=== PATIENT | female | born 1965 | race Caucasian/White ===

== ENCOUNTER → 2018-03-04 | Outpatient (CLI) | payer BC ==
--- NOTE | 2018-03-04 10:17 | CT ---
EXAMINATION TYPE: CT sinus wo con DATE OF EXAM: 03/04/2018 COMPARISON: NONE HISTORY: chronic sinus infections. drainage and congestion CT DLP: 547 mGycm CONTRAST: 0 mL of Isovue 300 The paranasal sinuses are examined in the axial plane at 2 mm thick sections. Reconstructed images i n the coronal plane were obtained. The maxillary sinuses are clear. The ethmoid air cells are clear. The sphenoid sinuses are clear. The frontal sinuses are clear. The septum is evaluated. There is septal deviation to the right. A right septal spur is noted. The ostiomeatal units are patent. IMPRESSIONS: 1. No acute or chronic sinusitis. 2. Right septal deviation with a right septal spur.
== END | disposition home or self-care (01) ==
LOC: RADCTMAIN 09:08
PROVIDERS: ATTEND Nurse Practitioner Family
DX: J34.2 Deviated nasal septum (principal); J34.89 Other specified disorders of nose and nasal sinuses
CPT/HCPCS: 70486

== ENCOUNTER → 2018-03-20 | Outpatient (CLI) | payer BC | END | disposition home or self-care (01) | LOC: LABMAIN 17:48 | PROVIDERS: ATTEND Otolaryngology | DX: Z53.9 Procedure and treatment not carried out, unspecified reason (principal) ==

== ENCOUNTER → 2022-01-09 | Outpatient (CLI) | payer OTHER ==
--- NOTE | 2022-01-09 20:01 | CT ---
EXAMINATION TYPE: CT soft tissue neck w con DATE OF EXAM: 01/09/2022 6:40 PM COMPARISON: CT dated 03/04/2018 HISTORY: dysphagia, sore throat CT DLP: 242.4 mGycm Automated exposure control for dose reduction was used. CONTRAST: CT scan of the neck is performed following with IV Contrast, patient injected with 100 mL of Isovue 3 00. Axial images are obtained, coronal and sagittal reformatted images are reviewed. FINDINGS: Markedly enlarged nasopharyngeal soft tissue measuring 18 mm in AP dimension compared to 14 [address] scan. This is relatively reassuring yet underlying neoplastic process can't be excluded. No sign ificant opacification of the mastoid air cells. Enlarged palatine tonsils, slightly more on the right side. Minimal prominence of the left inguinal tonsil. Unremarkable right inguinal tonsil. Unremarkable remainder of the pharynx, larynx and visualized portion of the trachea and esophagus. Un remarkable thyroid gland. Symmetrical unremarkable parotid and submandibular salivary glands. Subcent imeter bilateral cervical and submandibular lymph nodes, nonspecific. No pathologically enlarged or s uspicious lymph nodes in the neck. Patent major neck vessels. Degenerative changes at C5-6 level. No aggressive bone lesion. IMPRESSION: Markedly enlarged nasopharyngeal soft tissue, progressed yet still appreciated in 2018 CT scan which is relatively reassuring. Underlying neoplastic process cannot be excluded. Associated enlarged palat ine tonsils. Recommend clinical correlation and ENT consultation. Further PET scan assessment can be considered. No suspicious or pathologically enlarged lymph nodes in the neck.
== END | disposition home or self-care (01) ==
LOC: RADCTMAIN 18:02
PROVIDERS: ATTEND Otolaryngology
DX: R13.10 Dysphagia, unspecified (principal)
CPT/HCPCS: 70491; Q9967

== ENCOUNTER 2022-03-06 08:29 | Day surgery (SDC) | payer OTHER ==
[~2022-03-06 08:29] MED LIST: DEXAMETHASONE SOD PHOSPHATE 4 MG/ML 1 ML VIAL IV PRN; FAMOTIDINE 20 MG/2 ML VIAL IV PRN; LACTATED RINGERS 1,000 ML IV SCH; ONDANSETRON 4 MG/2 ML VIAL IVP PRN
[2022-03-06] MEDS ORDERED: LIDOCAINE 1% (10MG/ML) FOR IV START INTRADERMA ONE (08:58)
[2022-03-06] MEDS: OXYMETAZOLINE 0.05% NASL SPRAY 1 SPRAY BOTTLE EA NOSTRIL PRN ×5 (08:58→09:30)
[2022-03-06] MEDS ORDERED: PROPOFOL 10 MG/ML 20 ML VIAL IV ONE (10:08)
[2022-03-06] MEDS ORDERED: MIDAZOLAM 2 MG/2 ML VIAL ONE (10:08)
[2022-03-06] MEDS ORDERED: SUCCINYLCHOLINE CHLORIDE 100 MG/5 ML SYR IV ONE (10:08)
[2022-03-06] MEDS ORDERED: fentaNYL (PF) 50 MCG/ML 2 ML AMP ONE (10:08)
[2022-03-06] MEDS ORDERED: LIDOCAINE 2% INJ 20 MG/ML (2 ML VIAL) ONE (10:08)
[2022-03-06] MEDS ORDERED: LIDOCAINE 1%-EPI 1:100,000 20 ML VIAL SUBMUCOSAL ONE ×2 (10:19)
[2022-03-06] MEDS ORDERED: BACITRACIN ZINC 500 UNIT/GM OINT 28.4 GM TUBE TOPICAL ONE (10:26)
--- NOTE | 2022-03-06 10:57 | P.OP ---
Date of Procedure: 03/06/22 Preoperative Diagnosis: Deviated nasal septum Inferior turbinate hypertrophy Adenoid hypertrophy Postoperative Diagnosis: Same Procedure(s) Performed: Septoplasty Outfracture and submucous resection of the inferior turbinates Adenoidectomy Anesthesia: AIDAA Surgeon: Huseyin Brooks Estimated Blood Loss (ml): 5 Pathology: other (Nasal septal bone and cartilage) Condition: stable Disposition: PACU Indications for Procedure: The 56-year-old white female with difficulties with chronic nasal airway obstruction for many years despite medical management Operative Findings: Nasal septum deviated to the left with inferior turbinate hypertrophy bilaterally and moderate adenoid hypertrophy Description of Procedure: DESCRIPTION OF PROCEDURE: The patient was brought to the operative suite, placed in the supine position. The patient underwent induction of general anesthesia with oral endotracheal intubation without difficulty. The patient was prepped and draped in the usual aseptic fashion. 1% lidocaine with 1:100,000 epinephrine was infused submucosally on both sides of the nasal septum. While this was taking vasoconstrictive effect, the inferior turbinates were infractured with a [place] elevator. Partial submucous resection of the inferior turbinates was performed with Coblation device ablating a portion of the submucosal soft tissue. The inferior turbinates were then outfractured with a [place] elevator. A left hemitransfixion incision was then made through the mucoperichondrial. Mucoperiosteal flap on the left elevated. Bony cartilaginous junction was disarticulated and mucoperiosteal flap on the right was elevated. Bony nasoseptal deformity were removed with Inés forceps and an inferior cartilaginous strip was removed, leaving a full 1.5 cm caudal strut. Checking intranasally, this corrected the nasal septal deformities and the hemitransfixion incision was closed with running 4-0 chromic suture. The bilateral Wilcox airway splints coated in bacitracin ointment were placed in the nasal cavities and sutured transseptally with 4-0 nylon suture. The McIvor mouth gag was placed and red rubber Collins catheter was placed through the right nasal cavity and pulled through the oropharynx for soft palate retraction. The nasopharynx was examined with a mirror exam and the adenoids were ablated with suction cautery. Excellent hemostasis was noted and the catheter and McIvor mouthgag were removed. The patient was then suctioned in an orogastric fashion. The patient was allowed to emerge from general anesthesia, having tolerated the procedure well and was extubated in the operating suite, transferred to postoperative recovery area in satisfactory condition.
[2022-03-06 11:13] VITALS: TEMP 98
[2022-03-06] MEDS ORDERED: HYDROmorphone 0.5 MG/0.5 ML SYRINGE IVP ONE (11:56)
[2022-03-06] MEDS ORDERED: LACTATED RINGERS 1,000 ML IV ONE (12:18)
[2022-03-06] MEDS ORDERED: HYDROcodone/APAP 5-325MG 1 EACH TAB PO ONE (12:46)
[2022-03-06] MEDS ORDERED: HYDROcodone/APAP 5-325MG 1 EACH TAB ONE (12:46)
[2022-03-06 13:26] VITALS: BP 114/73; PULSE 74; RESP 16
== END 2022-03-06 13:45 | disposition home or self-care (01) ==
LOC: OR 08:29
PROVIDERS: ATTEND Otolaryngology
DX: J34.2 Deviated nasal septum (principal); J34.3 Hypertrophy of nasal turbinates; J35.2 Hypertrophy of adenoids; M06.9 Rheumatoid arthritis, unspecified; K90.0 Celiac disease; G43.909 Migraine, unspecified, not intractable, without status migrainosus; Z88.1 Allergy status to other antibiotic agents; Z88.8 Allergy status to other drugs, medicaments and biological substances; Z79.899 Other long term (current) drug therapy; E11.9 Type 2 diabetes mellitus without complications
CPT/HCPCS: 88300; 30520; 30140; 42831; J2250; J1100; J0690; J2405; J3010; J0330; J2704; J1170; J2001